=== PATIENT | female | born 1950 | race Two or more races ===

== ENCOUNTER → 2019-06-13 | Outpatient (CLI) | payer MEDICARE ==
[~2019-06-13] MED LIST: GADOTERATE 10 MMOL/20 ML SYR ONE; HYDR1TAB15 PO; RALO60TA PO
== END | disposition home or self-care (01) ==
LOC: EDSTATUS 10:45 → RAD 10:56
PROVIDERS: ATTEND Nurse Practitioner Primary Care
DX: K76.89 Other specified diseases of liver (principal); K82.4 Cholesterolosis of gallbladder; J90 Pleural effusion, not elsewhere classified; Z98.84 Bariatric surgery status; Z85.3 Personal history of malignant neoplasm of breast
CPT/HCPCS: 70553; 76700; A9575